=== PATIENT | female | born 1990 | race Caucasian/White ===

== ENCOUNTER 2018-09-14 13:36 | Emergency (ER) | payer SELFPAY ==
[2018-09-14] MEDS ORDERED: NA CHLORIDE 0.9% 1,000 ML ONE (15:15)
[2018-09-14] MEDS ORDERED: PROMETHAZINE 25 MG/ML VIAL ONE (15:15)
[2018-09-14 15:38] LABS: Absolute Lymphocytes (CBC) 2.2 K/uL (0.7-4.9); Absolute Monocytes 0.5 K/uL (0.1-1.3); Absolute Neutrophil 6.7 K/uL (1.8-8.0); Basophils % 0.4 % (0-1.3); Eosinophils % 1.4 % (0-4.4); Hematocrit 39.6 % (36.0-45.0); Lymphocytes % 23.3 % (15.3-44.8); MPV 7.8 fL (7.6-11.3); RBC Red Blood Cell Count 4.88 M/uL (3.86-4.86)
[2018-09-14 15:44] LABS: Potassium 3.9 mmol/L (3.5-5.1)
[2018-09-14 16:48] LABS: Urine Glucose NEGATIVE (NEG); Urine Specific Gravity >1.030 (1.005-1.030)
[2018-09-14 16:49] LABS: Urine Blood TRACE (NEG); Urine Protein 1+ (NEG); Urine pH 5.5 (5.0-7.0)
[2018-09-14 16:52] LABS: Urine Amorphous Sediment 2+ /HPF (NONE SEEN); Urine Bacteria >50 /HPF (<20); Urine Culture Reflex Order REFLEXED; Urine Mucus 3+ /HPF (NONE SEEN)
[2018-09-14] MEDS ORDERED: CEFTRIAXONE/SWI 1gm 1 GM/10 ML SYR ONE (17:55)
--- NOTE | 2018-09-14 19:38 | EDPHYS ---
Physician Documentation [facility] Name: Landy Andrews Age: 28 yrs Sex: Female : 1990 Arrival Date: 09/14/2018 Time: 13:39 Bed 17 Private MD: ED Physician Nickolas Stevens HPI: 09/14 15:00 This 28 yrs old Female presents to ER via Ambulatory with complaints of pm1 Vomiting, 6 Weeks . 15:00 The patient presents to the emergency department with nausea, vomiting. Onset: The pm1 symptoms/episode began/occurred 2 day(s) ago. Possible causes: . The symptoms are aggravated by food , The symptoms are alleviated by nothing. Associated signs and symptoms: Pertinent negatives: abdominal pain, dysuria, fever, vaginal discharge, bleeding. Severity of symptoms: in the emergency department the symptoms are unchanged. The patient has not experienced similar symptoms in the past. The patient has not recently seen a physician. 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 - Social history:: Smoking status: Patient/guardian denies using tobacco. - Ebola Screening: : No symptoms or risks identified at this time. ROS: 15:00 Constitutional: Negative for fever, chills, and weight loss, Eyes: Negative for injury, pm1 pain, redness, and discharge, ENT: Negative for injury, pain, and discharge, Neck: Negative for injury, pain, and swelling, Cardiovascular: Negative for chest pain, palpitations, and edema, Respiratory: Negative for shortness of breath, cough, wheezing, and pleuritic chest pain. 15:00 Back: Negative for injury and pain, : Negative for injury, bleeding, discharge, and swelling, MS/Extremity: Negative for injury and deformity, Skin: Negative for injury, rash, and discoloration. 15:00 Neuro: Negative for headache, weakness, numbness, tingling, and seizure. 15:00 Abdomen/GI: Positive for nausea and vomiting, Negative for abdominal pain, diarrhea, constipation. Exam: 15:00 Constitutional: This is a well developed, well nourished patient who is awake, alert, pm1 and in no acute distress. Head/Face: Normocephalic, atraumatic. Eyes: Pupils equal round and reactive to light, extra-ocular motions intact. Lids and lashes normal. Conjunctiva and sclera are non-icteric and not injected. Cornea within normal limits. Periorbital areas with no swelling, redness, or edema. ENT: Nares patent. No nasal discharge, no septal abnormalities noted. Tympanic membranes are normal and external auditory canals are clear. Oropharynx with no redness, swelling, or masses, exudates, or evidence of obstruction, uvula midline. Mucous membranes moist. Neck: Trachea midline, no thyromegaly or masses palpated, and no cervical lymphadenopathy. Supple, full range of motion without nuchal rigidity, or vertebral point tenderness. No Meningismus. Chest/axilla: Normal chest wall appearance and motion. Nontender with no deformity. No lesions are appreciated. Cardiovascular: Regular rate and rhythm with a normal S1 and S2. No gallops, murmurs, or rubs. Normal PMI, no JVD. No pulse deficits. Respiratory: Lungs have equal breath sounds bilaterally, clear to auscultation and percussion. No rales, rhonchi or wheezes noted. No increased work of breathing, no retractions or nasal flaring. 15:00 Back: No spinal tenderness. No costovertebral tenderness. Full range of motion. Skin: Warm, dry with normal turgor. Normal color with no rashes, no lesions, and no evidence of cellulitis. MS/ Extremity: Pulses equal, no cyanosis. Neurovascular intact. Full, normal range of motion. 15:00 Abdomen/GI: Inspection: abdomen appears normal, Bowel sounds: normal, Palpation: abdomen is soft and non-tender. 15:00 Neuro: Orientation: is normal, Motor: is normal, moves all fours. Vital Signs: 13:50 BP 125 / 67; Pulse 68; Resp 18 S; Temp 98.2(TE); Pulse Ox 100% on R/A; Weight 65.77 kg aa5 (R); Height 5 ft. 1 in. (154.94 cm) (R); Pain 0/10; 15:35 BP 120 / 64; Pulse 68; Resp 18; Pulse Ox 100% on R/A; hj 16:10 BP 116 / 79; Pulse 56; Resp 18; Pulse Ox 100% on R/A; hj 17:56 BP 110 / 78; Pulse 60; Resp 18; Pulse Ox 100% on R/A; hj 18:05 BP 102 / 67; Pulse 62; Resp 18; Pulse Ox 99% on R/A; hj 18:30 BP 105 / 73; Pulse 60; Resp 18; Pulse Ox 100% on R/A; hj 19:10 BP 110 / 70; Pulse 60; Resp 16; Temp 98.4; Pulse Ox 99% ; Pain 0/10; rr5 20:05 BP 108 / 62; Pulse 62; Resp 17; Temp 98.4; Pulse Ox 99% ; Pain 0/10; rr5 13:50 Body Mass Index 27.40 (65.77 kg, 154.94 cm) aa5 MDM: 14:49 Patient medically screened. [facility] 19:37 Data reviewed: vital signs. Data interpreted: Pulse oximetry: on room air is 100 %. pm1 Interpretation: normal. Counseling: I had a detailed discussion with the patient and/or guardian regarding: the historical points, exam findings, and any diagnostic results supporting the discharge/admit diagnosis, lab results, radiology results, the need for outpatient follow up, to return to the emergency department if symptoms worsen or persist or if there are any questions or concerns that arise at home. 09/14 14:57 Order name: Abo/rh Typing; Complete Time: 16:05 pm1 09/14 14:57 Order name: Basic Metabolic Panel; Complete Time: 16:05 pm1 09/14 14:57 Order name: CBC with Diff; Complete Time: 16:05 pm09/14 14:57 Order name: Urine Microscopic Only; Complete Time: 17:35 pm1 09/14 16:20 Order name: Quantitative Hcg; Complete Time: 18:12 pm1 09/14 16:37 Order name: Urine Dipstick--Ancillary (enter results); Complete Time: 17:35 dm5 09/14 14:57 Order name: Urine Test (obtain specimen); Complete Time: 16:35 pm1 09/14 14:57 Order name: IV Saline Lock; Complete Time: 15:13 pm1 09/14 16:37 Order name: Urine --Ancillary (enter results); Complete Time: 17:35 dm5 09/14 16:53 Order name: Urine Culture EDMS 09/14 18:10 Order name: US Transvaginal Ob pm1 09/14 14:57 Order name: Labs collected and sent; Complete Time: 15:13 pm1 09/14 14:57 Order name: NPO; Complete Time: 14:59 pm1 09/14 14:57 Order name: Urine Dipstick-Ancillary (obtain specimen); Complete Time: 16:35 pm1 09/14 14:57 Order name: PO challenge; Complete Time: 16:35 pm1 Administered Medications: 15:10 Drug: NS 0.9% 1000 ml Route: IV; Rate: 1000 ml; Site: right antecubital; hj 16:30 Follow up: IV Status: Completed infusion hj 18:23 Follow up: IV Status: Completed infusion; IV Intake: 1000ml hj 15:10 Drug: Phenergan 12.5 mg Route: IVP; Site: right antecubital; hj 16:29 Follow up: Response: No adverse reaction hj 17:37 Drug: Rocephin 1 grams Route: IV; Rate: calculated rate; Site: right antecubital; hj 17:43 Follow up: IV Status: Completed infusion; IV Intake: 10ml hj Disposition: 09/15 07:09 Co-signature as Attending Physician, Nickolas Stevens MD I agree with the assessment and kassandra plan of care. Disposition: 09/14/18 19:37 Discharged to Home. Impression: Urinary tract infection, site not specified. - Condition is Stable. - Discharge Instructions: and Urinary Tract Infection. - Prescriptions for Macrobid 100 mg Oral Capsule - take 1 capsule by ORAL route every 12 hours for 10 days; 20 capsule. promethazine 25 mg Oral Tablet - take 1 tablet by ORAL route every 6 hours As needed; 20 tablet. - Medication Reconciliation Form, Thank You Letter, Antibiotic Education, Prescription Opioid Use, Family Work Release form. - Follow up: Emergency Department; When: As needed; Reason: Worsening of condition. Follow up: Private Physician; When: 2 - 3 days; Reason: Recheck today's complaints, Continuance of care, Re-evaluation by your physician. - Problem is new. - Symptoms have improved. Signatures: Dispatcher [employer] EDNickolas Rutledge MD MD cha Calderon, Audri, RN RN aa5 Jose De Jesus Mccormack, RN RN Scout Alexandre NP COLLET GLUER pm1 Ziggy Michel, RN RN rr5 Corrections: (The following items were deleted from the chart) 09/14 19:38 19:37 09/14/2018 19:37 Discharged to Home. Impression: Urinary tract infection pm1 following incomplete spontaneous ; Urinary tract infection, site not specified. Condition is Stable. Forms are Medication Reconciliation Form, Thank You Letter, Antibiotic Education, Prescription Opioid Use. Follow up: Emergency Department; When: As needed; Reason: Worsening of condition. Follow up: Private Physician; When: 2 - 3 days; Reason: Recheck today's complaints, Continuance of care, Re-evaluation by your physician. Problem is new. Symptoms have improved. pm1 20:07 19:38 09/14/2018 19:37 Discharged to Home. Impression: Urinary tract infection, site rr5 not specified. Condition is Stable. Forms are Medication Reconciliation Form, Thank You Letter, Antibiotic Education, Prescription Opioid Use. Follow up: Emergency Department; When: As needed; Reason: Worsening of condition. Follow up: Private Physician; When: 2 - 3 days; Reason: Recheck today's complaints, Continuance of care, Re-evaluation by your physician. Problem is new. Symptoms have improved. pm1
--- NOTE | 2018-09-14 19:38 | ER ---
Nurse's Notes [facility] Name: Landy Andrews Age: 28 yrs Sex: Female : 1990 Arrival Date: 09/14/2018 Time: 13:39 Bed 17 Private MD: Diagnosis: Urinary tract infection, site not specified Presentation: 09/14 13:48 Presenting complaint: Patient states: "I am about 7 weeks ". 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 Pt reports nausea and vomiting x 2 weeks, pt states "I haven't been able to keep anything down for about 2 days". Pt denies pain, denies vaginal bleeding. Transition of care: patient was not received from another setting of care. Onset of symptoms was August 2018. Risk Assessment: Do you want to hurt yourself or someone else? Patient reports no desire to harm self or others. Initial Sepsis Screen: Does the patient meet any 2 criteria? No. Patient's initial sepsis screen is negative. Does the patient have a suspected source of infection? No. Patient's initial sepsis screen is negative. Care prior to arrival: None. 13:48 Method Of Arrival: Ambulatory aa5 13:48 Acuity: [place] 3 aa5 Triage Assessment: 14:49 General: Appears in no apparent distress. uncomfortable, Behavior is calm, cooperative, hj appropriate for age. Pain: Denies pain. GI: Reports nausea, vomiting. 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 - Social history:: Smoking status: Patient/guardian denies using tobacco. - Ebola Screening: : No symptoms or risks identified at this time. Screenin:49 Abuse screen: Denies threats or abuse. Denies injuries from another. Nutritional hj screening: No deficits noted. Tuberculosis screening: No symptoms or risk factors identified. Fall Risk None identified. Assessment: 14:49 GI: Abdomen is non-distended. hj 14:49 General: Appears in no apparent distress. uncomfortable, Behavior is calm, cooperative, hj appropriate for age. Pain: Denies pain. Neuro: Level of Consciousness is awake, alert, obeys commands, Oriented to person, place, time, situation, Appropriate for age. Cardiovascular: Capillary refill < 3 seconds Patient's skin is warm and dry. Respiratory: Airway is patent Respiratory effort is even, unlabored, Respiratory pattern is regular, symmetrical. : No signs and/or symptoms were reported regarding the genitourinary system. EENT: No signs and/or symptoms were reported regarding the EENT system. Derm: No signs and/or symptoms reported regarding the dermatologic system. Musculoskeletal: No signs and/or symptoms reported regarding the musculoskeletal system. 15:35 Reassessment: Patient and/or family updated on plan of care and expected duration. Pain hj level reassessed. Patient is alert, oriented x 3, equal unlabored respirations, skin warm/dry/pink. in room; awaiting results and POC;. 16:10 Reassessment: Patient and/or family updated on plan of care and expected duration. Pain hj level reassessed. Patient is alert, oriented x 3, equal unlabored respirations, skin warm/dry/pink. awaiting results and POC;. 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 hj 18:29 Reassessment: Patient and/or family updated on plan of care and expected duration. Pain hj level reassessed. Patient is alert, oriented x 3, equal unlabored respirations, skin warm/dry/pink. awaiting US tech for US procedure;. 18:53 Reassessment: wheeled to US;. hj 19:10 Reassessment: awaiting for ultrasound result. General: Appears in no apparent distress. rr5 comfortable, Behavior is calm, cooperative, appropriate for age. Pain: Denies pain. Neuro: Level of Consciousness is awake, alert, obeys commands, Oriented to person, place, time, situation, Appropriate for age. Cardiovascular: Capillary refill < 3 seconds Patient's skin is warm and dry. Respiratory: Airway is patent Respiratory effort is even, unlabored, Respiratory pattern is regular, symmetrical. GI: Abdomen is non-distended, Reports vomiting. : Reports 7 weeks . EENT: No signs and/or symptoms were reported regarding the EENT system. Derm: Skin is intact, Skin temperature is warm. Musculoskeletal: Capillary refill < 3 seconds, Range of motion: intact in all extremities. 20:00 Reassessment: Patient appears in no apparent distress at this time. No changes from rr5 previously documented assessment. Patient is alert, oriented x 3, equal unlabored respirations, skin warm/dry/pink. discharge instruction given and explained without complaints made. Vital Signs: 13:50 BP 125 / 67; Pulse 68; Resp 18 S; Temp 98.2(TE); Pulse Ox 100% on R/A; Weight 65.77 kg aa5 (R); Height 5 ft. 1 in. (154.94 cm) (R); Pain 0/10; 15:35 BP 120 / 64; Pulse 68; Resp 18; Pulse Ox 100% on R/A; hj 16:10 BP 116 / 79; Pulse 56; Resp 18; Pulse Ox 100% on R/A; hj 17:56 BP 110 / 78; Pulse 60; Resp 18; Pulse Ox 100% on R/A; hj 18:05 BP 102 / 67; Pulse 62; Resp 18; Pulse Ox 99% on R/A; hj 18:30 BP 105 / 73; Pulse 60; Resp 18; Pulse Ox 100% on R/A; hj 19:10 BP 110 / 70; Pulse 60; Resp 16; Temp 98.4; Pulse Ox 99% ; Pain 0/10; rr5 20:05 BP 108 / 62; Pulse 62; Resp 17; Temp 98.4; Pulse Ox 99% ; Pain 0/10; rr5 13:50 Body Mass Index 27.40 (65.77 kg, 154.94 cm) aa5 ED Course: 13:39 Patient arrived in ED. rg4 13:48 Arm band placed on. aa5 13:50 Triage completed. aa5 14:44 Jose De Jesus Mccormack RN is Primary Nurse. hj 14:48 Scout Alexandre NP is PHCP. pm1 14:48 Nickolas Stevens MD is Attending Physician. pm1 14:49 Patient has correct armband on for positive identification. Placed in gown. Bed in low hj position. Call light in reach. Side rails up X 1. Adult w/ patient. 15:10 Initial lab(s) drawn, by me, sent to lab. Inserted saline lock: 22 gauge in right hj antecubital area, using aseptic technique. Blood collected. 16:28 Quantitative Hcg Sent. hj 19:12 US Transvaginal Ob In Process Unspecified. EDMS 20:00 No provider procedures requiring assistance completed. Patient did not have IV access rr5 during this emergency room visit. Administered Medications: 15:10 Drug: NS 0.9% 1000 ml Route: IV; Rate: 1000 ml; Site: right antecubital; hj 16:30 Follow up: IV Status: Completed infusion hj 18:23 Follow up: IV Status: Completed infusion; IV Intake: 1000ml hj 15:10 Drug: Phenergan 12.5 mg Route: IVP; Site: right antecubital; hj 16:29 Follow up: Response: No adverse reaction hj 17:37 Drug: Rocephin 1 grams Route: IV; Rate: calculated rate; Site: right antecubital; hj 17:43 Follow up: IV Status: Completed infusion; IV Intake: 10ml hj Intake: 17:43 IV: 10ml; Total: 10ml. hj 18:23 IV: 1000ml; Total: 1010ml. Outcome: 19:37 Discharge ordered by MD. pm1 20:00 Discharged to home ambulatory, with family. rr5 20:00 Condition: stable 20:00 Discharge instructions given to patient, Instructed on discharge instructions, follow up and referral plans. medication usage, Demonstrated understanding of instructions, follow-up care, medications, Prescriptions given X 2. 20:07 Patient left the ED. rr5 Addendum: 09/17/2018 10:13 Addendum: Culture Results: Positive urine culture. No further action required. Bacteria s s sensitive to prescribed antibiotic. Signatures: Dispatcher [employer] EDVT Juliet Pierce RN RN aa5 Celia Bolton RN RN Jose De Jesus Mccormack RN RN hj Scout Alexandre, MACHINE PECAN PICKER MACHINE PECAN PICKER pm1 Laura Burgos rg4 Ziggy Michel RN RN rr5
--- NOTE | 2018-09-16 11:34 | RAD REPORT ---
EXAM DESCRIPTION: US - Transvaginal OB - 09/15/2018 11:39 am CLINICAL HISTORY: with abdominal pain COMPARISON: None. FINDINGS: The uterus measures 7 x 5 x 5. A gestational sac is present within the endometrium. Withi n this is a yolk sac and pole with a crown-rump length 1.3 centimeters. Cardiac activity 157 be ats per minute. Right ovary is normal in size and echotexture. Left ovary was not seen. An adnexal mass is not noted. No significant free fluid is seen. IMPRESSION: Single live intrauterine with an estimated gestational age 7 weeks 4 days ARCENIO 04/29/2019
== END 2018-09-14 20:07 | disposition home or self-care (01) ==
LOC: ER 13:36
DX: O21.9 Vomiting of pregnancy, unspecified (principal); Z3A.00 Weeks of gestation of pregnancy not specified
CPT/HCPCS: 36415; 76817; 80048; 81003; 81015; 81025; 84702; 85025; 86900; 86901; 87077; 87086; 87088; 87186; 96361; 96374; 96375; 99284; J0696; J2550; J7030

== ENCOUNTER 2018-09-16 12:14 | Emergency (ER) | payer SELFPAY ==
[2018-09-16] MEDS ORDERED: NA CHLORIDE 0.9% 1,000 ML ONE (13:36)
[2018-09-16] MEDS ORDERED: METOCLOPRAMIDE 10 MG/2mL INJ ONE (13:36)
[2018-09-16 13:44] LABS: Absolute Lymphocytes (CBC) 2.1 K/uL (0.7-4.9); Absolute Monocytes 0.5 K/uL (0.1-1.3); Absolute Neutrophil 5.8 K/uL (1.8-8.0); Basophils % 0.9 % (0-1.3); Hematocrit 38.1 % (36.0-45.0); Lymphocytes % 24.5 % (15.3-44.8); MPV 7.7 fL (7.6-11.3); Monocytes % 5.3 % (3.3-12.3)
[2018-09-16 13:59] LABS: Albumin 4.5 g/dL (3.4-5.0); Bilirubin Total 0.8 mg/dL (0.2-1.0); Potassium 3.6 mmol/L (3.5-5.1)
--- NOTE | 2018-09-16 15:58 | EDPHYS ---
Physician Documentation [facility] Name: Landy Andrews Age: 28 yrs Sex: Female : 1990 Arrival Date: 09/16/2018 Time: 12:18 Bed 25 Private MD: ED Physician Jim Fields HPI: 09/16 13:17 This 28 yrs old Female presents to ER via Ambulatory with complaints of jmm Vomiting. 13:17 The patient presents to the emergency department with nausea, vomiting. Possible jmm causes: . Associated signs and symptoms: Pertinent negatives: abdominal pain. This is a 28 year old female with no chronic medical conditions that presents to the ED with complaints of vomiting. Patient was seen in the ED and prescribed macrobid and promethazine. Patient states she has been unable to swallow her pills without vomiting. Patient denies fever, denies vaginal bleeding, denies pelvic pain. . 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 - Social history:: Smoking status: Patient/guardian denies using tobacco. - Ebola Screening: : No symptoms or risks identified at this time. ROS: 13:17 Constitutional: Negative for fever, chills, and weight loss, Cardiovascular: Negative jmm for chest pain, palpitations, and edema, Respiratory: Negative for shortness of breath, cough, wheezing, and pleuritic chest pain. 13:17 Abdomen/GI: Positive for vomiting. 13:17 All other systems are negative. Exam: 13:17 Constitutional: This is a well developed, well nourished patient who is awake, alert, jmm and in no acute distress. Head/Face: atraumatic. Eyes: EOMI, no conjunctival erythema appreciated ENT: Moist Mucus Membranes Neck: Trachea midline, Supple Chest/axilla: Normal chest wall appearance and motion. Cardiovascular: Regular rate and rhythm. No edema appreciated Respiratory: Normal respirations, no respiratory distress appreciated Abdomen/GI: Non distended, soft 13:17 MS/ Extremity: Moves all extremities, no obvious deformities appreciated, no edema noted to the lower extremities Neuro: Awake and alert, normal gait Psych: Behavior is normal, Mood is normal, Patient is cooperative and pleasant 13:17 Abdomen/GI: Inspection: abdomen appears normal, Bowel sounds: normal, Palpation: abdomen is soft and non-tender, in all quadrants. 13:17 Back: ROM is normal. 13:17 Musculoskeletal/extremity: ROM: intact in all extremities. Vital Signs: 12:30 BP 130 / 75; Pulse 57; Resp 18; Temp 98.2(O); Pulse Ox 100% ; Weight 65.77 kg; Height 5 sv ft. 1 in. (154.94 cm); Pain 0/10; 13:10 BP 108 / 75; Pulse 63; Resp 17 S; Temp 98.1(O); Pulse Ox 100% on R/A; ca1 14:02 BP 118 / 69; Pulse 63; Resp 17 S; Pulse Ox 100% on R/A; ca1 15:01 BP 102 / 51; Pulse 65; Resp 18 S; Pulse Ox 95% on R/A; ca1 15:55 BP 106 / 64; Pulse 67; Resp 17 S; Temp 98.2(O); Pulse Ox 96% on R/A; ca1 12:30 Body Mass Index 27.40 (65.77 kg, 154.94 cm) sv MDM: 13:17 Patient medically screened. [facility] 15:57 Data reviewed: vital signs, nurses notes. Counseling: I had a detailed discussion with daniel the patient and/or guardian regarding: the historical points, exam findings, and any diagnostic results supporting the discharge/admit diagnosis, lab results, the need for outpatient follow up, to return to the emergency department if symptoms worsen or persist or if there are any questions or concerns that arise at home. 15:57 ED course: Patient symptoms relieved in the ED. Patient's abdomen is benign. I do not [facility] suspect an acute intrabdominal process. patient is advised to follow up with ob and otherwise given strict return precautions. patient understood and agrees with the plan of care. . 09/16 13:18 Order name: CBC with Diff; Complete Time: 14:11 [facility] 09/16 13:18 Order name: CMP; Complete Time: 14:11 [facility] 09/16 13:18 Order name: Saline Lock; Complete Time: 13:29 [facility] 09/16 14:22 Order name: PO challenge; Complete Time: 15:03 [facility] Administered Medications: 13:31 Drug: Reglan 10 mg Route: IVP; Site: left antecubital; ca1 15:50 Follow up: Response: No adverse reaction; Nausea is decreased; Vomiting decreased ca1 13:31 Drug: NS 0.9% 1000 ml Route: IV; Rate: 1 bolus; Site: left antecubital; ca1 14:29 Follow up: Urine output 320 ml; Response: No adverse reaction; IV Status: Completed ca1 infusion Disposition: 09/17 07:38 Co-signature as Attending Physician, Jim Fields MD I agree with the assessment and kdr plan of care. Disposition: 09/16/18 15:57 Discharged to Home. Impression: Vomiting of , unspecified. - Condition is Stable. - Discharge Instructions: Morning Sickness. - Prescriptions for Zofran ODT 4 mg Oral tablet,disintegrating - place 1 tablet by TRANSLINGUAL route every 4-6 hours; 20 tablet. promethazine 12.5 mg Rectal suppository - insert 1 suppository by RECTAL route every 6 hours; 12 suppository. - Medication Reconciliation Form, Thank You Letter, Antibiotic Education, Prescription Opioid Use form. - Follow up: Private Physician; When: 2 - 3 days; Reason: Recheck today's complaints, Continuance of care, Re-evaluation by your physician. Signatures: Dispatcher [employer] Rahel Ronquillo, RN RN Jim Weber MD MD kdr Mickail, Joel, PA PA jmm Acob, Cheryl, RN RN ca1 Corrections: (The following items were deleted from the chart) 09/16 16:16 15:57 09/16/2018 15:57 Discharged to Home. Impression: Vomiting of , ca1 unspecified. Condition is Stable. Forms are Medication Reconciliation Form, Thank You Letter, Antibiotic Education, Prescription Opioid Use. Follow up: Private Physician; When: 2 - 3 days; Reason: Recheck today's complaints, Continuance of care, Re-evaluation by your physician. nazario
--- NOTE | 2018-09-16 15:58 | ER ---
Nurse's Notes [facility] Name: Landy Andrews Age: 28 yrs Sex: Female : 1990 Arrival Date: 09/16/2018 Time: 12:18 Bed 25 Private MD: Diagnosis: Vomiting of , unspecified Presentation: 09/16 12:29 Presenting complaint: Patient states: seen here 2 days ago and dx with UTI, sent home sv with Phenergan. c/o vomiting that has not improved. Transition of care: patient was not received from another setting of care. Onset of symptoms was September 14, 2018. Initial Sepsis Screen: Does the patient meet any 2 criteria? No. Patient's initial sepsis screen is negative. Does the patient have a suspected source of infection? No. Patient's initial sepsis screen is negative. Care prior to arrival: None. 12:29 Method Of Arrival: Ambulatory sv 12:29 Acuity: [place] 4 sv 14:04 Risk Assessment: Do you want to hurt yourself or someone else? Patient reports no ca1 desire to harm self or others. Triage Assessment: 12:29 General: Appears in no apparent distress. uncomfortable, Behavior is calm, cooperative, sv appropriate for age. Pain: Denies pain. Neuro: Level of Consciousness is awake, alert, obeys commands, Oriented to person, place, time, situation, Gait is steady. Respiratory: Respiratory effort is even, unlabored, Respiratory pattern is regular, symmetrical. GI: Reports nausea, vomiting. Derm: Skin is pink, warm \T\ dry. 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 - Social history:: Smoking status: Patient/guardian denies using tobacco. - Ebola Screening: : No symptoms or risks identified at this time. Screenin:10 Abuse screen: Denies threats or abuse. Denies injuries from another. Nutritional ca1 screening: No deficits noted. Tuberculosis screening: No symptoms or risk factors identified. Fall Risk None identified. Assessment: 13:10 General: Appears in no apparent distress. comfortable, Behavior is calm, cooperative, ca1 appropriate for age. Pain: Denies pain. Neuro: Level of Consciousness is awake, alert, obeys commands, Oriented to person, place, time, situation. Cardiovascular: Heart tones S1 S2 present Capillary refill < 3 seconds Patient's skin is warm and dry. Respiratory: Airway is patent Respiratory effort is even, unlabored, Respiratory pattern is regular, symmetrical, Breath sounds are clear bilaterally. GI: Abdomen is round non-distended, Bowel sounds present X 4 quads. Abd is soft and non tender X 4 quads. GI: Reports nausea, vomiting, since 4 days ago. : No deficits noted. No signs and/or symptoms were reported regarding the genitourinary system. EENT: No deficits noted. No signs and/or symptoms were reported regarding the EENT system. Derm: Skin is intact, is healthy with good turgor, Skin is pink, warm \T\ dry. Musculoskeletal: Circulation, motion, and sensation intact. Capillary refill < 3 seconds, Range of motion: intact in all extremities. 14:02 Reassessment: Patient appears in no apparent distress at this time. Patient and/or ca1 family updated on plan of care and expected duration. Pain level reassessed. Patient is alert, oriented x 3, equal unlabored respirations, skin warm/dry/pink. 14:56 Reassessment: Patient appears in no apparent distress at this time. Patient is alert, ca1 oriented x 3, equal unlabored respirations, skin warm/dry/pink. Given crackers and juice for PO challenge. Pt able to tolerate crackers and sips of juice. No vomiting reported and noted at this time. 15:55 Reassessment: Patient appears in no apparent distress at this time. Patient is alert, ca1 oriented x 3, equal unlabored respirations, skin warm/dry/pink. Finished all food and juice given. No reports of vomiting. 16:13 Reassessment: Patient appears in no apparent distress at this time. Pt ambulated home. ca1 Reports boyfriend is coming to pick her up. Vital Signs: 12:30 BP 130 / 75; Pulse 57; Resp 18; Temp 98.2(O); Pulse Ox 100% ; Weight 65.77 kg; Height 5 sv ft. 1 in. (154.94 cm); Pain 0/10; 13:10 BP 108 / 75; Pulse 63; Resp 17 S; Temp 98.1(O); Pulse Ox 100% on R/A; ca1 14:02 BP 118 / 69; Pulse 63; Resp 17 S; Pulse Ox 100% on R/A; ca1 15:01 BP 102 / 51; Pulse 65; Resp 18 S; Pulse Ox 95% on R/A; ca1 15:55 BP 106 / 64; Pulse 67; Resp 17 S; Temp 98.2(O); Pulse Ox 96% on R/A; ca1 12:30 Body Mass Index 27.40 (65.77 kg, 154.94 cm) sv ED Course: 12:18 Patient arrived in ED. mr 12:30 Triage completed. sv 12:31 Arm band placed on. sv 13:10 Richy Taylor PA is PHCP. [facility] 13:10 Jim Fields MD is Attending Physician. jmm 13:10 Patient has correct armband on for positive identification. Placed in gown. Bed in low ca1 position. Call light in reach. Side rails up X 1. Pulse ox on. NIBP on. Warm blanket given. 13:16 Caitlyn Velasquez RN is Primary Nurse. ca1 13:30 No provider procedures requiring assistance completed. Inserted saline lock: 20 gauge ca1 in left antecubital area, using aseptic technique. Blood collected. 16:14 IV discontinued, intact, bleeding controlled, No redness/swelling at site. Pressure ca1 dressing applied. Administered Medications: 13:31 Drug: Reglan 10 mg Route: IVP; Site: left antecubital; ca1 15:50 Follow up: Response: No adverse reaction; Nausea is decreased; Vomiting decreased ca1 13:31 Drug: NS 0.9% 1000 ml Route: IV; Rate: 1 bolus; Site: left antecubital; ca1 14:29 Follow up: Urine output 320 ml; Response: No adverse reaction; IV Status: Completed ca1 infusion Output: 14:29 Urine: 320ml; Total: 320ml. ca1 Outcome: 15:57 Discharge ordered by . [facility] 16:14 Discharged to home ambulatory. ca1 16:14 Condition: stable 16:14 Discharge instructions given to patient, Instructed on discharge instructions, follow up and referral plans. medication usage, Demonstrated understanding of instructions, follow-up care, medications, Prescriptions given X 2. 16:16 Patient left the ED. ca1 Signatures: Rahel Estevez RN RN Richy Monreal PA PA jmm Rivera, Mary mr Eva, Caitlyn, RN RN ca1 Corrections: (The following items were deleted from the chart) 13:10 No provider procedures requiring assistance completed. ca1 ca1 13:10 Inserted saline lock: 20 gauge in left antecubital area, using aseptic technique. ca1 Blood collected. ca1
== END 2018-09-16 16:16 | disposition home or self-care (01) ==
LOC: ER 12:14
DX: O21.9 Vomiting of pregnancy, unspecified (principal)
CPT/HCPCS: 36415; 80053; 85025; 96361; 96374; 99284; J2765; J7030

== ENCOUNTER 2018-10-12 09:25 | Emergency (ER) | payer SELFPAY ==
--- NOTE | 2018-10-12 10:50 | RAD REPORT ---
EXAM DESCRIPTION: US - Matter Bianca Tm 1 - 10/12/2018 10:31 am CLINICAL HISTORY: with abdominal pain and vaginal bleeding COMPARISON: August 2018 FINDINGS: The uterus measures 9 x 8 x 8 centimeters. A gestational sac is present within the endome trium. Within this is a yolk sac and pole with a crown-rump length 5.6 centimeters. Cardiac act ivity 170 beats per minute. Normal amniotic fluid Ovaries normal in size and echotexture. An adnexal mass is not noted. No significant free fluid is seen. IMPRESSION: Single live intrauterine with an estimated gestational age 12 weeks 1 day ARCENIO 04/25/2019
[2018-10-12 10:58] LABS: Absolute Lymphocytes (CBC) 1.5 K/uL (0.7-4.9); Basophils % 0.6 % (0-1.3); Eosinophils % 1.7 % (0-4.4); Hematocrit 37.6 % (36.0-45.0); Lymphocytes % 19.6 % (15.3-44.8); MPV 7.7 fL (7.6-11.3); Monocytes % 3.7 % (3.3-12.3); RBC Red Blood Cell Count 4.65 M/uL (3.86-4.86)
[2018-10-12 11:25] LABS: Urine Blood TRACE (NEG); Urine Glucose NEGATIVE (NEG); Urine Protein TRACE (NEG); Urine Specific Gravity >1.030 (1.005-1.030); Urine pH 5.5 (5.0-7.0)
[2018-10-12 11:51] LABS: BUN Blood Urea Nitrogen 9 mg/dL (7-18); Bicarbonate 23 mmol/L (21-32); Glucose Level 86 mg/dL (74-106); HCG, Quantitative 95134 mIU/mL (1-3); Potassium 3.5 mmol/L (3.5-5.1); Sodium Level 136 mmol/L (136-145)
[2018-10-12] MEDS ORDERED: NA CHLORIDE 0.9% 1,000 ML ONE (11:56)
[2018-10-12 11:57] LABS: Calcium Oxalate Crystals- Ur FEW (NONE SEEN); Urine Bacteria 20-50 /HPF (<20); Urine Culture Reflex Order REFLEXED; Urine Mucus 2+ /HPF (NONE SEEN); Urine RBC <5 /HPF (NONE SEEN)
--- NOTE | 2018-10-12 12:02 | ER ---
Nurse's Notes [facility] Name: Landy Andrews Age: 28 yrs Sex: Female : 1990 Arrival Date: 10/12/2018 Time: : Bed 20 Private MD: Diagnosis: 12 weeks gestation of ;Urinary tract infection, site not specified Presentation: 10/12 09:54 Presenting complaint: Patient states: Bilateral flank and mid back pain for 4 days. aj Denies burning with urination. Care prior to arrival: None. 09:54 Method Of Arrival: Ambulatory aj 09:54 Acuity: [place] 3 aj 09:54 Transition of care: patient was not received from another setting of care. Onset of aa5 symptoms was September 2018. Risk Assessment: Do you want to hurt yourself or someone else? Patient reports no desire to harm self or others. Initial Sepsis Screen: Does the patient meet any 2 criteria? No. Patient's initial sepsis screen is negative. Does the patient have a suspected source of infection? No. Patient's initial sepsis screen is negative. Triage Assessment: 09:55 General: Appears in no apparent distress. comfortable, Behavior is calm, cooperative, aj appropriate for age. Pain: Complains of pain in low back area, mid back area, posterior aspect of right lateral abdomen, anterior aspect of right lateral abdomen, posterior aspect of left lateral abdomen and anterior aspect of left lateral abdomen. Neuro: Level of Consciousness is awake, alert, obeys commands, Oriented to person, place, time, situation, Appropriate for age. Respiratory: Airway is patent Respiratory effort is even, unlabored, Respiratory pattern is regular, symmetrical. GI: Abdomen is flat, non-distended. : Reports pain in bilateral flank(s), in lower back. Derm: Skin is intact, is healthy with good turgor, Skin is pink, warm \T\ dry. normal. 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 - Social history:: Smoking status: unknown. - Ebola Screening: : Patient negative for fever greater than or equal to 101.5 degrees Fahrenheit, and additional compatible Ebola Virus Disease symptoms Patient denies exposure to infectious person Patient denies travel to an Ebola-affected area in the 21 days before illness onset No symptoms or risks identified at this time. Screenin:25 Abuse screen: Denies threats or abuse. Denies injuries from another. Nutritional iw screening: No deficits noted. Tuberculosis screening: No symptoms or risk factors identified. Fall Risk None identified. Assessment: 10:45 General: Appears in no apparent distress. Pain: Complains of pain in abdomen and back. iw Neuro: Level of Consciousness is awake, alert, obeys commands, Oriented to person, place, time, situation, Moves all extremities. Cardiovascular: Patient's skin is warm and dry. Respiratory: Airway is patent Respiratory effort is even, unlabored. GI: Bowel sounds present X 4 quads. Abd is soft and non tender X 4 quads. : Denies vaginal bleeding. Derm: Skin is intact, is healthy with good turgor. Musculoskeletal: Range of motion: intact in all extremities. Vital Signs: 09:55 BP 137 / 56; Pulse 64; Resp 18; Temp 98.7; Pulse Ox 100% on R/A; Weight 64.86 kg; aj Height 5 ft. 1 in. (154.94 cm); 10:00 BP 108 / 51; Pulse 76; Resp 16 S; Temp 98.1(O); Pulse Ox 100% on R/A; aa5 09:55 Body Mass Index 27.02 (64.86 kg, 154.94 cm) aj ED Course: 09:26 Patient arrived in ED. as 09:30 Asia Escobar [facility]C [facility] kb 09:30 Jim Fields MD is Attending Physician. kb 09:55 Triage completed. aj 09:55 Arm band placed on right wrist. Patient placed in an exam room. aj 10:08 Jodi Powers, RN is Primary Nurse. iw 10:30 Patient has correct armband on for positive identification. iw 10:38 Matter Eval Tm 1 In Process Unspecified. EDMS 10:45 Initial lab(s) drawn, by me, sent to lab. Inserted saline lock: 20 gauge in right iw antecubital area, using aseptic technique. Blood collected. 12:26 No provider procedures requiring assistance completed. IV discontinued, intact, iw bleeding controlled, No redness/swelling at site. Pressure dressing applied. Administered Medications: 11:49 Drug: NS 0.9% 1000 ml Route: IV; Rate: 1000 ml; Site: right antecubital; iw Outcome: 12:01 Discharge ordered by MD. hayes 12:26 Discharged to home ambulatory. iw 12:26 Condition: good 12:26 Discharge instructions given to patient, Instructed on discharge instructions, follow up and referral plans. Demonstrated understanding of instructions, follow-up care. 12:27 Patient left the ED. iw Signatures: Dispatcher [employer] EDAsia Byers, ELECTRICAL INTERN-C ELECTRICAL INTERN-Tata Velázquez, RN RN Cristy Whitney Irene, RN RN iw Calderon, Audri RN RN aa5
--- NOTE | 2018-10-12 12:03 | EDPHYS ---
Physician Documentation [facility] Name: Landy Andrews Age: 28 yrs Sex: Female : 1990 Arrival Date: 10/12/2018 Time: : Bed 20 Private MD: ED Physician Jim Fields HPI: 10/12 10:09 This 28 yrs old Female presents to ER via Ambulatory with complaints of kb Abdominal Pain - 11 wks preg. 10:09 The patient presents to the emergency department with abdominal pain, of the right kb lower quadrant and left lower quadrant, that started 4 day(s) ago. The estimated gestational age is 11 weeks. course: care: none, Leakage of Fluid: none appreciated, Ultrasound: the patient had an ultrasound, which was normal. Previous pregnancies: in previous pregnancies patient has had. Associated signs and symptoms: Pertinent positives: abdominal pain, Pertinent negatives: chest pain, diarrhea, dysuria, fever, frequency, nausea, ruptured membranes, seizure, shortness of breath, vaginal bleeding, vaginal discharge, vomiting. The patient has experienced a previous episode, similar to when she had pyelonephritis during her last . The patient has not recently seen a physician. 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 - Social history:: Smoking status: unknown. - Ebola Screening: : Patient negative for fever greater than or equal to 101.5 degrees Fahrenheit, and additional compatible Ebola Virus Disease symptoms Patient denies exposure to infectious person Patient denies travel to an Ebola-affected area in the 21 days before illness onset No symptoms or risks identified at this time. ROS: 10:08 Constitutional: Negative for fever, chills, and weight loss, Neck: Negative for injury, kb pain, and swelling, Cardiovascular: Negative for chest pain, palpitations, and edema, Respiratory: Negative for shortness of breath, cough, wheezing, and pleuritic chest pain, MS/Extremity: Negative for injury and deformity, Skin: Negative for injury, rash, and discoloration, Neuro: Negative for headache, weakness, numbness, tingling, and seizure. 10:08 Abdomen/GI: Positive for abdominal pain, Negative for nausea, vomiting, and diarrhea. 10:08 Back: Positive for flank pain, bilaterally. Exam: 10:08 Constitutional: This is a well developed, well nourished patient who is awake, alert, kb and in no acute distress. Head/Face: Normocephalic, atraumatic. ENT: Nares patent. No nasal discharge, no septal abnormalities noted. Tympanic membranes are normal and external auditory canals are clear. Oropharynx with no redness, swelling, or masses, exudates, or evidence of obstruction, uvula midline. Mucous membranes moist. Neck: Trachea midline, no thyromegaly or masses palpated, and no cervical lymphadenopathy. Supple, full range of motion without nuchal rigidity, or vertebral point tenderness. No Meningismus. Chest/axilla: Normal chest wall appearance and motion. Nontender with no deformity. No lesions are appreciated. Cardiovascular: Regular rate and rhythm with a normal S1 and S2. No gallops, murmurs, or rubs. Normal PMI, no JVD. No pulse deficits. Respiratory: Lungs have equal breath sounds bilaterally, clear to auscultation and percussion. No rales, rhonchi or wheezes noted. No increased work of breathing, no retractions or nasal flaring. Back: No spinal tenderness. No costovertebral tenderness. Full range of motion. Skin: Warm, dry with normal turgor. Normal color with no rashes, no lesions, and no evidence of cellulitis. MS/ Extremity: Pulses equal, no cyanosis. Neurovascular intact. Full, normal range of motion. Neuro: Awake and alert, GCS 15, oriented to person, place, time, and situation. Cranial nerves II-XII grossly intact. Motor strength 5/5 in all extremities. Sensory grossly intact. Cerebellar exam normal. Normal gait. 10:08 Abdomen/GI: Inspection: abdomen appears normal, Bowel sounds: normal, in all quadrants, Palpation: soft, in all quadrants, mild abdominal tenderness, in the right lower quadrant and left lower quadrant. Vital Signs: 09:55 BP 137 / 56; Pulse 64; Resp 18; Temp 98.7; Pulse Ox 100% on R/A; Weight 64.86 kg; aj Height 5 ft. 1 in. (154.94 cm); 10:00 BP 108 / 51; Pulse 76; Resp 16 S; Temp 98.1(O); Pulse Ox 100% on R/A; aa5 09:55 Body Mass Index 27.02 (64.86 kg, 154.94 cm) aj MDM: 09:36 Data reviewed: old medical records, Pt is O positive. kb 09:51 Patient medically screened. kb 10:08 Data interpreted: Pulse oximetry: on room air is 100 %. Interpretation: normal. kb 12:01 Counseling: I had a detailed discussion with the patient and/or guardian regarding: the kb historical points, exam findings, and any diagnostic results supporting the discharge/admit diagnosis, lab results, the need for outpatient follow up, an OB/Gyne specialist, to return to the emergency department if symptoms worsen or persist or if there are any questions or concerns that arise at home. 10/12 09:56 Order name: CBC with Diff; Complete Time: 11:16 kb 10/12 09:56 Order name: Basic Metabolic Panel; Complete Time: 11:54 kb 10/12 09:56 Order name: Quantitative Hcg; Complete Time: 11:54 kb 10/12 09:56 Order name: Urine Microscopic Only; Complete Time: 12:00 kb 10/12 11:11 Order name: Urine Dipstick--Ancillary (enter results); Complete Time: 11:29 ms 10/12 11:11 Order name: Urine --Ancillary (enter results); Complete Time: 11:29 ms 10/12 09:56 Order name: IV Start; Complete Time: 10:57 kb 10/12 09:56 Order name: Urine Dipstick-Ancillary (obtain specimen); Complete Time: 11:06 kb 10/12 10:38 Order name: Matter Eval Tm 1; Complete Time: 11:35 EDMS 10/12 11:59 Order name: Urine Culture EDMS Administered Medications: 11:49 Drug: NS 0.9% 1000 ml Route: IV; Rate: 1000 ml; Site: right antecubital; iw Disposition: 17:14 Co-signature as Attending Physician, Jim Fields MD I agree with the assessment and kdr plan of care. Disposition: 10/12/18 12:01 Discharged to Home. Impression: 12 weeks gestation of , Urinary tract infection, site not specified. - Condition is Stable. - Discharge Instructions: First Trimester of , [id number], and Urinary Tract Infection. - Prescriptions for Macrobid 100 mg Oral Capsule - take 1 capsule by ORAL route every 12 hours for 5 days; 10 capsule. - Medication Reconciliation Form, Thank You Letter, Antibiotic Education, Prescription Opioid Use form. - Follow up: Emergency Department; When: As needed; Reason: Worsening of condition. Follow up: Private Physician; When: 2 - 3 days; Reason: Recheck today's complaints, Continuance of care, Re-evaluation by your physician. Signatures: Dispatcher [employer] [facility] Asia Escobar, KEL-C EQUIPMENT OR MACHINERY CLEANER-Tata Velázquez, RN RN aj Jim Fields MD MD kdr Jodi Powers RN RN iw Corrections: (The following items were deleted from the chart) 10:36 09:59 Transvaginal Ob+US.RAD.BRZ ordered. [facility] 12:27 12:01 10/12/2018 12:01 Discharged to Home. Impression: 12 weeks gestation of ; iw Urinary tract infection, site not specified. Condition is Stable. Forms are Medication Reconciliation Form, Thank You Letter, Antibiotic Education, Prescription Opioid Use. Follow up: Emergency Department; When: As needed; Reason: Worsening of condition. Follow up: Private Physician; When: 2 - 3 days; Reason: Recheck today's complaints, Continuance of care, Re-evaluation by your physician. kb
== END 2018-10-12 12:27 | disposition home or self-care (01) ==
LOC: ER 09:25
DX: O23.41 Unspecified infection of urinary tract in pregnancy, first trimester (principal); Z3A.12 12 weeks gestation of pregnancy
CPT/HCPCS: 36415; 76801; 80048; 81003; 81015; 81025; 84702; 85025; 87077; 87086; 87088; 87186; 99284; J7030